=== PATIENT | female | born 1955 | race Caucasian/White ===

== ENCOUNTER 2017-03-17 22:35 | Emergency (ER) | payer OTHER ==
[2017-03-17 22:44] VITALS: BMI 26.3
[2017-03-18] MEDS ORDERED: diphenhydrAMINE HCL 25 MG CAPSULE (FP) PO ONE ×2 (01:22→01:26)
[2017-03-18] MEDS ORDERED: LOPERAMIDE HCL 2 MG CAPSULE PO ONE (01:22)
[2017-03-18] MEDS ORDERED: SODIUM CHLORIDE 0.9% 1000 ML INFUS.BAG IV ONE (01:23)
[2017-03-18] MEDS ORDERED: LOPERAMIDE HCL 2 MG CAPSULE ONE (01:26)
[2017-03-18 02:36] LABS: URINE APPEARANCE CLEAR; URINE BILIRUBIN NEGATIVE (NEGATIVE); URINE BLOOD NEGATIVE (NEGATIVE); URINE COLOR YELLOW; URINE GLUCOSE (UA) NEGATIVE (NEGATIVE); URINE KETONE NEGATIVE (NEGATIVE); URINE NITRITE NEGATIVE (NEGATIVE); URINE PROTEIN NEGATIVE (NEGATIVE); URINE UROBILINOGEN NEGATIVE mg/dL (0.2-1.0)
[2017-03-18 02:42] LABS: URINE LEUK ESTERASE 1+ (NEGATIVE)
--- NOTE | 2017-03-18 02:49 | PDOC ---
History of Present Illness - General Chief Complaint: Allergic Reaction Stated Complaint: ALLERGIC REACTION Time Seen by Provider: 03/18/17 00:25 - History of Present Illness Initial Comments: 03/18/17 02:46 CHIEF COMPLAINT: HISTORY OF PRESENT ILLNESS: 61 yo F with hx of HTN, NIDDM, arthritis, asthma presents to ED with rash x 1 day. Patient states that she ate bread and butter in the morning and then went for a walk and noticed a rash to her face that felt warm. Throughout the day it spread downward to her arms and legs, and she complains of itching and that she "felt cold." She also reports 7 episodes of diarrhea and states she had decreased urine output for the last two days. Patient recently traveled to [place] and she is concerned that she has Zika although she denies any URI symptoms or fever. PAST MEDICAL HISTORY: Denies past medical history FAMILY HISTORY: Denies SOCIAL HISTORY: Lives at home with ____. Occupation: . Denies tobacco, alcohol, illicit drug use. SURGICAL HISTORY: Denies ALLERGIES: No known drug allergies REVIEW OF SYSTEMS General/Constitutional: Denies fever or chills. Denies weakness, weight change. HEENT: Denies change in vision. Denies ear pain or discharge. Denies sore throat. Cardiovascular: Denies chest pain or shortness of breath. Respiratory: Denies cough, wheezing, or hemoptysis. Gastrointestinal: Denies nausea, vomiting, diarrhea or constipation. Denies rectal bleeding. Genitourinary: Denies dysuria, frequency, or change in urination. Musculoskeletal: Denies joint or muscle swelling or pain. Denies neck or back pain. Skin and breasts: Denies rash or easy bruising. Neurologic: Denies headache, vertigo, loss of consciousness, or loss of sensation. Psychiatric: Denies depression or anxiety. Endocrine: Denies increased thirst. Denies abnormal weight change. Hematologic/Lymphatic: Denies anemia, easy bleeding, or history of blood clots. Allergic/Immunologic: Denies hives or skin allergy. Denies latex allergy. PHYSICAL EXAM General Appearance: Well-appearing, appropriately dressed. No apparent distress , no intoxication. HEENT: EOMI, PERRLA, normal ENT inspection, normal voice, TMs normal, pharynx normal. No conjunctival pallor. No photophobia, scleral icterus. Neck: Supple. Trachea midline. No tenderness, rigidity, carotid bruit, stridor , lymphadenopathy, or thyromegaly. Respiratory/Chest: Lungs CTAB. No shortness of breath, chest tenderness, respiratory distress, accessory muscle use. No crackles, rales, rhonchi, stridor , wheezing, dullness Cardiovascular: RRR. S1, S2. No JVD, murmur, bradycardia, tachycardia. Vascular Pulses: Dorsalis-Pedis (R): 2+, Dorsalis-Pedis (L): 2+ Gastrointestinal/Abdominal: Normal bowel sounds. Abdomen soft, non-distended. No tenderness or rebound tenderness. No organomegaly, pulsatile mass, guarding , hernia, hepatomegaly, splenomegaly. Lymphatic: No adenopathy, tenderness. Musculoskeletal/Extremities: Normal inspection. FROM of all extremities, normal capillary refill. Pelvis Stable. No CVA tenderness. No tenderness to extremities, pedal edema, swelling, erythema or deformity. Integumentary: Generalized macular pruritic rash to entire body. Appropriate color, dry, warm. No cyanosis, erythema, jaundice Neurologic: commission broker II-XII intact. Fully oriented, alert. Appropriate mood/affect. Motor strength 5/5. No appreciable EOM palsy, facial droop or sensory deficit. Past History - Past Medical History Allergies/Adverse Reactions: Allergies Allergy/AdvReac Type Severity Reaction Status Date / Time No Known Drug Allergies Allergy Verified 11/16/13 17:09 Home Medications: Ambulatory Orders Atorvastatin Ca [Lipitor -] 40 mg PO DAILY 11/16/13 Ezetimibe [Zetia] 10 mg PO DAILY 11/16/13 Ibuprofen/Famotidine [Duexis 800-26.6 mg Tablet] 1 each PO TID 11/16/13 Levothyroxine [Synthroid -] 50 mcg PO DAILY 11/16/13 Metformin HCl [Glucophage -] 850 mg PO BID 11/16/13 Olmesartan/Hydrochlorothiazide [Benicar Hct 20-12.5 mg Tablet] 1 each PO DAILY 11/16/13 Saxagliptin HCl [Onglyza] 5 mg PO DAILY 11/16/13 Loratadine [Claritin -] 10 mg PO DAILY 04/24/14 Oxycodone HCl/Acetaminophen [Percocet 5-325 mg Tablet -] 1 - 2 tab PO Q4H #20 tablet 04/25/14 Diphenhydramine HCl [Benadryl -] 25 mg PO Q6H PRN #28 capsule 03/18/17 Anemia: No Asthma: No Cancer: No Cardiac Disorders: No CVA: No COPD: No CHF: No Dementia: No Diabetes: Yes GI Disorders: Yes (HIATAL HERNIA) Disorders: No HTN: Yes Hypercholesterolemia: Yes Liver Disease: No Seizures: No Thyroid Disease: Yes - Surgical History Abdominal Surgery: No Appendectomy: No Cardiac Surgery: No Cholecystectomy: No Lung Surgery: No Neurologic Surgery: No Orthopedic Surgery: No - Immunization History Immunization Up to Date: Yes - Psycho/Social/Smoking Cessation Hx Anxiety: No Suicidal Ideation: No Smoking History: Never smoked Have you smoked in the past 12 months: No Information on smoking cessation initiated: No Hx Alcohol Use: No Drug/Substance Use Hx: No Substance Use Type: None Hx Substance Use Treatment: No *Physical Exam - Vital Signs Last Vital Signs Temp Pulse Resp BP Pulse Ox 98.8 F 87 18 117/71 96 03/17/17 22:42 03/17/17 22:42 03/17/17 22:42 03/17/17 22:42 03/17/17 22:42 ED Treatment Course - ADDITIONAL ORDERS Additional order review: Laboratory Results 03/18/17 02:20 Urine Color Yellow Urine Appearance Clear Urine pH 6.0 Urine Protein Negative Urine Glucose (UA) Negative Urine Ketones Negative Urine Blood Negative Urine Nitrite Negative Urine Bilirubin Negative Urine Urobilinogen Negative Ur Leukocyte Esterase 1+ H - Medications Given in the ED: ED Medications Discontinued Medications Generic Name Dose Route Start Last Admin Trade Name Freq PRN Reason Stop Dose Admin Diphenhydramine HCl 25 mg 03/18/17 01:22 03/18/17 01:37 Benadryl - PO 03/18/17 01:23 25 mg ONCE ONE Administration Loperamide HCl 4 mg 03/18/17 01:22 03/18/17 01:37 Imodium - PO 03/18/17 01:23 Not Given ONCE ONE Sodium Chloride 1,000 ml 03/18/17 01:23 03/18/17 01:37 Normal Saline - IV 03/18/17 01:24 1,000 ml ONCE ONE Administration Medical Decision Making - Medical Decision Making 03/18/17 03:50 61 yo F with hx of HTN, NIDDM, arthritis, asthma presents to ED with rash x 1 day. -25 mg Benadryl -IVF -Loperamide Patient refused loperamide as she states she isn't having diarrhea anymore. However patient reports that she is still concerned about her decreased output and would like to check her urine. -UA, Ucx UA unremarkable. Patient now complains of "feeling like I will have an astma attack." Lungs CTAB. -Duoneb Patient reassessed; at this time she states she is feeling much better and is ready to go home. Advised patient to f/u with PCP and insurance policy clerk for allergy skin testing. Advised patient of signs and symptoms for return to ER; patient verbalized understanding and agrees to plan. *DC/Admit/Observation/Transfer Diagnosis at time of Disposition: Rash - Discharge Dispostion Admit: No - Prescriptions Prescriptions: Diphenhydramine HCl [Benadryl -] 25 mg PO Q6H PRN #28 capsule PRN Reason: For Itching - Referrals Referrals: Sarah Tripp MD [Primary Care Provider] - Lashanda Elkins MD [Staff Physician] - - Patient Instructions Printed Discharge Instructions: DI for Hives Additional Instructions: Please take medication as prescribed. As discussed, you must follow up with Dr. Tripp this week for further evaluation. You may also want to follow up with the insurance policy clerk for allergy testing. If you experience any shortness of breath, difficulty breathing, swelling of your tongue, mouth, lips, or throat, fever, nausea, vomiting, diarrhea, or any new or worsening symptoms, please return to the ER. Por favor, tome la medicacin segn lo prescrito. [place] se discuti, usted debe hacer un seguimiento con Dr. Tripp esta semana para kam evaluacin ms detallada. Tambien puede seguir con el dermatlogo para las pruebas de alergia. Si siente dificultad para respirar, dificultad para respirar, hinchazn de la lengua, boca, labios o garganta, fiebre, nuseas, vmitos, diarrea o cualquier s ntoma nuevo o que empeora, por favor regrese a la tank de emergencias. Print Language: DANISH
[2017-03-18] MEDS ORDERED: ALBUTEROL SO4 2.5/IPRATROPIUM 0.5 INH SOL 3 ML VIAL.NEB. NEB ONE ×2 (02:50→02:54)
[2017-03-18 02:57] LABS: URINE MUCUS RARE; URINE WBC 1 /hpf (3-5)
[2017-03-18 03:47] VITALS: BP 134/71; PULSE 73; TEMP 97.8
--- NOTE | 2017-03-18 03:47 | PDOC ---
*Physical Exam - Vital Signs Last Vital Signs Temp Pulse Resp BP Pulse Ox 98.8 F 87 18 117/71 96 03/17/17 22:42 03/17/17 22:42 03/17/17 22:42 03/17/17 22:42 03/17/17 22:42 ED Treatment Course - ADDITIONAL ORDERS Additional order review: Laboratory Results 03/18/17 02:20 Urine Color Yellow Urine Appearance Clear Urine pH 6.0 Urine Protein Negative Urine Glucose (UA) Negative Urine Ketones Negative Urine Blood Negative Urine Nitrite Negative Urine Bilirubin Negative Urine Urobilinogen Negative Ur Leukocyte Esterase 1+ H Urine RBC None Urine WBC 1 Ur Epithelial Cells Rare Urine Mucus Rare - Medications Given in the ED: ED Medications Discontinued Medications Generic Name Dose Route Start Last Admin Trade Name Freq PRN Reason Stop Dose Admin Albuterol/Ipratropium 1 amp 03/18/17 02:50 03/18/17 02:59 Duoneb - NEB 03/18/17 02:51 1 amp ONCE ONE Administration Diphenhydramine HCl 25 mg 03/18/17 01:22 03/18/17 01:37 Benadryl - PO 03/18/17 01:23 25 mg ONCE ONE Administration Loperamide HCl 4 mg 03/18/17 01:22 03/18/17 01:37 Imodium - PO 03/18/17 01:23 Not Given ONCE ONE Sodium Chloride 1,000 ml 03/18/17 01:23 03/18/17 01:37 Normal Saline - IV 03/18/17 01:24 1,000 ml ONCE ONE Administration Medical Decision Making - Medical Decision Making 03/18/17 03:47 agree with care from RON Rogers *DC/Admit/Observation/Transfer Diagnosis at time of Disposition: Rash - Prescriptions Prescriptions: Diphenhydramine HCl [Benadryl -] 25 mg PO Q6H PRN #28 capsule PRN Reason: For Itching - Referrals Referrals: Lashanda Elkins MD [Staff Physician] - Sarah Tripp MD [Primary Care Provider] - - Patient Instructions Printed Discharge Instructions: DI for Hives Additional Instructions: Please take medication as prescribed. As discussed, you must follow up with Dr. Tripp this week for further evaluation. You may also want to follow up with the payment specialist for allergy testing. If you experience any shortness of breath, difficulty breathing, swelling of your tongue, mouth, lips, or throat, fever, nausea, vomiting, diarrhea, or any new or worsening symptoms, please return to the ER. Por favor, tome la medicacin segn lo prescrito. [place] se discuti, usted debe hacer un seguimiento con Dr. Tripp esta semana para kam evaluacin ms detallada. Tambien puede seguir con el dermatlogo para las pruebas de alergia. Si siente dificultad para respirar, dificultad para respirar, hinchazn de la lengua, boca, labios o garganta, fiebre, nuseas, vmitos, diarrea o cualquier s ntoma nuevo o que empeora, por favor regrese a la tank de emergencias. Print Language: TURKMEN - Post Discharge Activity
== END 2017-03-18 03:48 | disposition home or self-care (01) ==
LOC: JER 22:35
PROC: 3E0F7GC Introduction of Other Therapeutic Substance into Respiratory Tract, Via Natural or Artificial Opening (ICD-10-PCS; principal; 2017-03-17)
DX: R21 Rash and other nonspecific skin eruption (principal); J45.909 Unspecified asthma, uncomplicated; E11.9 Type 2 diabetes mellitus without complications; E78.00 Pure hypercholesterolemia, unspecified; E03.9 Hypothyroidism, unspecified; Z79.84 Long term (current) use of oral hypoglycemic drugs
CPT/HCPCS: 81003; 81015; 87086; 99281-25

== ENCOUNTER 2017-08-11 16:16 | Emergency (ER) | payer OTHER ==
[2017-08-11] MEDS ORDERED: ALBUTEROL SO4 2.5/IPRATROPIUM 0.5 INH SOL 3 ML VIAL.NEB. NEB ONE (16:31)
--- NOTE | 2017-08-11 16:31 | PDOC ---
Rapid Medical Evaluation Time Seen by Provider: 08/11/17 16:25 Medical Evaluation: Allergies Allergy/AdvReac Type Severity Reaction Status Date / Time No Known Drug Allergies Allergy Verified 11/16/13 17:09 08/11/17 16:26 Pt with c/o: worsening cough, fatigue, dx'd yesterday with influenza and placed on steroids for wheezing ( asthmatic) and ceftin 500mg. pt on brief exam: rhonchi to rll, and wheezing lll Pt ordered for:Douneb and cxr to r/o pneumonia Pt to proceed to the ED: Discharge Disposition - Diagnosis Cough - Referrals - Patient Instructions - Post Discharge Activity
[2017-08-11 16:32] VITALS: BP 112/55; PULSE 89; TEMP 98.8; BMI 26.4
--- NOTE | 2017-08-11 17:12 | PDOC ---
History of Present Illness - General Chief Complaint: Cold Symptoms Stated Complaint: COUGHING Time Seen by Provider: 08/11/17 16:25 - History of Present Illness Initial Comments: 62 year old F with hx of HTN, NIDDM, arthritis, asthma recently diagnosed with flu (yesterday clinically with Dr. Tripp) presenting with worsening cough. Denies chest pain outside of cough/ with deep inhalation and states that it is non-exertional, and does not radiate, present with palpitations, or SOB. She was seen yesterday by Dr. Tripp's partner and diagnosed clinically with the flu, given oseltlamavir, prednisone, a nebulizer, and Ceftin. Denies nausea, vomiting, diarrhea, constipation, or other sick symptoms. 08/11/17 17:12 Past History - Past Medical History Allergies/Adverse Reactions: Allergies Allergy/AdvReac Type Severity Reaction Status Date / Time No Known Drug Allergies Allergy Verified 08/11/17 16:27 Home Medications: Ambulatory Orders Atorvastatin Ca [Lipitor -] 40 mg PO DAILY 11/16/13 Ezetimibe [Zetia] 10 mg PO DAILY 11/16/13 Ibuprofen/Famotidine [Duexis 800-26.6 mg Tablet] 1 each PO TID 11/16/13 Levothyroxine [Synthroid -] 50 mcg PO DAILY 11/16/13 Metformin HCl [Glucophage -] 850 mg PO BID 11/16/13 Olmesartan/Hydrochlorothiazide [Benicar Hct 20-12.5 mg Tablet] 1 each PO DAILY 11/16/13 Saxagliptin HCl [Onglyza] 5 mg PO DAILY 11/16/13 Loratadine [Claritin -] 10 mg PO DAILY 04/24/14 Oxycodone HCl/Acetaminophen [Percocet 5-325 mg Tablet -] 1 - 2 tab PO Q4H #20 tablet 04/25/14 Diphenhydramine HCl [Benadryl -] 25 mg PO Q6H PRN #28 capsule 03/18/17 Azithromycin 250 mg PO DAILY 4 Days #4 tablet 08/11/17 Guaifenesin/Dextromethorphan [Robitussin Cough-Chest Dm Liq] 237 ml PO BID PRN 10 Days #1 bottle 08/11/17 Anemia: No Asthma: No Cancer: No Cardiac Disorders: No CVA: No COPD: No CHF: No Dementia: No Diabetes: Yes GI Disorders: Yes (HIATAL HERNIA) Disorders: No HTN: Yes Hypercholesterolemia: Yes Liver Disease: No Seizures: No Thyroid Disease: Yes (HYPO) - Surgical History Abdominal Surgery: No Appendectomy: No Cardiac Surgery: No Cholecystectomy: No Lung Surgery: No Neurologic Surgery: No Orthopedic Surgery: No - Immunization History Immunization Up to Date: Yes - Suicide/Smoking/Psychosocial Hx Smoking History: Never smoked Have you smoked in the past 12 months: No Information on smoking cessation initiated: No Hx Alcohol Use: No Drug/Substance Use Hx: No Substance Use Type: None Hx Substance Use Treatment: No Review of Systems - Review of Systems Constitutional: Yes: Chills, Fever. No: Diaphoresis, Loss of Appetite HEENTM: No: Blurred Vision Respiratory: Yes: Cough. No: Shortness of Breath, Wheezing, Productive cough, Hemoptysis Cardiac (ROS): Yes: Chest Pain, Chest Tightness. No: Irregular Heart Rate, Palpitations ABD/GI: No: Diarrhea, Nausea, Poor Appetite, Vomiting : No: Dysuria, Discharge, Hematuria, Incontinence Integumentary: No: Bruising, Lesions, Lumps Neurological: No: Headache Psychiatric: No: Anxiety, Depression *Physical Exam - Vital Signs Last Vital Signs Temp Pulse Resp BP Pulse Ox 98.8 F 89 17 112/55 99 08/11/17 16:28 08/11/17 16:28 08/11/17 16:28 08/11/17 16:28 08/11/17 16:28 - Physical Exam General Appearance: Yes: Nourished, Appropriately Dressed. No: Apparent Distress HEENT: positive: EOMI, ALVERTO. negative: Normal ENT Inspection (nasal mucous discharge) Neck: positive: Trachea midline, Normal Thyroid, Supple. negative: Tender, Rigid Respiratory/Chest: positive: Lungs Clear, Normal Breath Sounds, Paradoxal Breathing. negative: Chest Tender, Respiratory Distress, Accessory Muscle Use Cardiovascular: positive: Regular Rhythm, Regular Rate Gastrointestinal/Abdominal: positive: Normal Bowel Sounds, Flat, Soft. negative : Tender Extremity: positive: Normal Capillary Refill, Normal Inspection, Normal Range of Motion. negative: Tender Integumentary: positive: Normal Color, Dry, Warm Neurologic: positive: Fully Oriented, Alert, Normal Mood/Affect, Normal Response , Motor Strength 5/5 ED Treatment Course - Medications Given in the ED: ED Medications Discontinued Medications Generic Name Dose Route Start Last Admin Trade Name Freq PRN Reason Stop Dose Admin Albuterol/Ipratropium 1 amp 08/11/17 16:31 08/11/17 16:33 Duoneb - NEB 08/11/17 16:32 1 amp ONCE ONE Administration Medical Decision Making - Medical Decision Making 62 year old female with history of asthma presenting with URI like symptoms currently on ceftin, prednisone, nebulizer, and oseltamavir. CXR showing possible LLL infiltrate but not an obvious focus/ consolidation. Patient overall well appearing and main complaint of cough has improved with robitussin. No wheezing s/p duoneb prior to exam. Spoke to Dr. Tripp's BRAKESHOE REPAIRER and she is OK with the discharge. Will add Robitussin and azithromycin to regimen and have her follow up tomorrow with Qasim. 08/11/17 18:27 *DC/Admit/Observation/Transfer Diagnosis at time of Disposition: Cough, Viral URI with cough - Discharge Dispostion Disposition: HOME Condition at time of disposition: Improved Admit: No - Prescriptions Prescriptions: Azithromycin 250 mg PO DAILY 4 Days #4 tablet Guaifenesin/Dextromethorphan [Robitussin Cough-Chest Dm Liq] 237 ml PO BID PRN 10 Days #1 bottle PRN Reason: Cough - Referrals Referrals: Sarah Tripp MD [Primary Care Provider] - - Patient Instructions Printed Discharge Instructions: DI for Viral Upper Respiratory Infection -- Adult Additional Instructions: Es probable que tengas kam infeccin respiratoria viral. Contine con todos los medicamentos que recibi de la oficina del Dr. Tripp y los nuevos medicamentos que le estamos dando hoy. Puede sammy Robitussin hasta 2 veces al d a para la tos. Por favor, siga con la Dra. Tripp maana en carcamo oficina. Regrese al departamento de emergencias si tiene sntomas nuevos o que empeoran a pesar del uso de carcamo medicamento. Print Language: NEPALI - Post Discharge Activity
[2017-08-11] MEDS ORDERED: guaiFENesin/CODEINE 10 ML UNIT-DOSE CUPS PO ONE (17:24)
--- NOTE | 2017-08-11 17:28 | PDOC ---
Attending Attestation - Resident Resident Name: Gt Anguianojacintograce - ED Attending Attestation I have performed the following: I have examined & evaluated the patient, The case was reviewed & discussed with the resident, I agree w/resident's findings & plan, Exceptions are as noted - HPI HPI: 08/11/17 17:25 62 YO female diag with influenza yestersay and placed on tamiflu,steroids, bronchodilators and was sent for cxr to r/u pneumonia - Physicial Exam PE: 08/11/17 18:30 wnwd 62 yo famale presents because of persistent cough,seen in PCP office and diag w influenza head ncat throat no exudates nares++rhinorrhea neck supple lungs cta b.l cvs [id number] abd nontender ext no deformity neuro axox3,ambulatory,no gross focal neuro deficits skin warm,dry - Medical Decision Making 08/11/17 18:33 cxr ?? infiltrate lll, plan -spoke to CLUTCH MECH[employer]IC at Dr Hendricks's office .will add zithromax plan follow up in office this week
[2017-08-11] MEDS ORDERED: guaiFENesin/CODEINE 5 ML UNIT-DOSE CUPS PO ONE (17:46)
[2017-08-11] MEDS ORDERED: AZITHROMYCIN 500 MG TABLET PO ONE (18:32)
[2017-08-11] MEDS ORDERED: AZITHROMYCIN 250 MG TABLET ONE ×2 (18:39→18:43)
== END 2017-08-11 18:51 | disposition home or self-care (01) ==
LOC: JER 16:16
PROC: 3E0F7GC Introduction of Other Therapeutic Substance into Respiratory Tract, Via Natural or Artificial Opening (ICD-10-PCS; principal; 2017-08-11)
DX: J06.9 Acute upper respiratory infection, unspecified (principal); B97.89 Other viral agents as the cause of diseases classified elsewhere; I10 Essential (primary) hypertension; E78.00 Pure hypercholesterolemia, unspecified; E11.9 Type 2 diabetes mellitus without complications; Z79.84 Long term (current) use of oral hypoglycemic drugs; E03.9 Hypothyroidism, unspecified
CPT/HCPCS: 71045-TC; 94640; 99281-25

== ENCOUNTER 2017-11-24 15:24 | Emergency (ER) | payer OTHER ==
[2017-11-24 15:35] VITALS: BP 129/68; PULSE 77; TEMP 98.9; BMI 28.9
--- NOTE | 2017-11-24 16:35 | PDOC ---
History of Present Illness - General Chief Complaint: Pain Stated Complaint: BACK, LT ARM PAIN Time Seen by Provider: 11/24/17 16:18 - History of Present Illness Initial Comments: 62-year-old female presents for evaluation of left hand numbness and tingling. Her symptoms and going on for 2 weeks. There are no precipitating factors or relieving factors. She denies prior problems with left hand 11/24/17 16:31 Past History - Past Medical History Allergies/Adverse Reactions: Allergies Allergy/AdvReac Type Severity Reaction Status Date / Time No Known Drug Allergies Allergy Verified 11/24/17 15:31 Home Medications: Ambulatory Orders Levothyroxine [Synthroid -] 50 mcg PO DAILY 11/16/13 Olmesartan/Hydrochlorothiazide [Benicar Hct 20-12.5 mg Tablet] 1 each PO DAILY 11/16/13 Saxagliptin HCl [Onglyza] 5 mg PO DAILY 11/16/13 metFORMIN HCL [Glucophage -] 850 mg PO BID 11/16/13 Loratadine [Claritin -] 10 mg PO DAILY 04/24/14 Cyclobenzaprine HCl [Flexeril -] 10 mg PO TID 11/24/17 Dexlansoprazole [Dexilant] 60 mg PO DAILY 11/24/17 Anemia: No Asthma: No Cancer: No Cardiac Disorders: No CVA: No COPD: No CHF: No Dementia: No Diabetes: Yes GI Disorders: Yes (HIATAL HERNIA) Disorders: No HTN: Yes Hypercholesterolemia: Yes Liver Disease: No Seizures: No Thyroid Disease: Yes (HYPO) - Surgical History Abdominal Surgery: No Appendectomy: No Cardiac Surgery: No Cholecystectomy: Yes Lung Surgery: No Neurologic Surgery: No Orthopedic Surgery: No - Immunization History Immunization Up to Date: Yes - Suicide/Smoking/Psychosocial Hx Smoking History: Never smoked Have you smoked in the past 12 months: No Hx Alcohol Use: No Drug/Substance Use Hx: No Substance Use Type: None Hx Substance Use Treatment: No Review of Systems - Review of Systems Comments:: GENERAL/CONSTITUTIONAL: [No fever or chills. No weakness. No weight change.] HEAD, EYES, EARS, NOSE AND THROAT: [No change in vision. No ear pain or discharge. No sore throat.] CARDIOVASCULAR: [No chest pain or shortness of breath.] RESPIRATORY: [No cough, wheezing, or hemoptysis.] GASTROINTESTINAL: [No nausea, vomiting, diarrhea or constipation. No rectal bleeding.] GENITOURINARY: [No dysuria, frequency, or change in urination.] MUSCULOSKELETAL: [No joint or muscle swelling or pain. No neck or back pain left hand pain.] SKIN AND BREASTS: [No rash or easy bruising.] NEUROLOGIC: [No headache, vertigo, loss of consciousness, or loss of sensation.] PSYCHIATRIC: [No depression or anxiety.] ENDOCRINE: [No increased thirst. No abnormal weight change.] HEMATOLOGIC/LYMPHATIC: [No anemia, easy bleeding, or history of blood clots.] ALLERGIC/IMMUNOLOGIC: [No hives or skin allergy. No latex allergy.] 11/24/17 16:31 *Physical Exam - Vital Signs Last Vital Signs Temp Pulse Resp BP Pulse Ox 98.9 F 77 18 129/68 99 11/24/17 15:31 11/24/17 15:31 11/24/17 15:31 11/24/17 15:31 11/24/17 15:31 - Physical Exam Comments: Cervical spine skin color and temperature are normal. There is full nonpainful range of motion. No palpable spasm. Biceps triceps and brachial radialis reflexes are 2+ and symmetric bilaterally. There is 5 out of 5 strength and thumb extension abduction and wrist flexion and extension elbow flexion and extension. 5 out of 5 strength in deltoid. Negative Jamila sign. Spurling maneuver is negative bilaterally. There are no gross sensory motor deficits. Neurovascularly intact. Left right elbow skin color and temperature are normal full range of motion which is nonpainful negative cubital tunnel sign no evidence of instability upper extremity compartments soft and nontender. Bilateral wrist exam full range of motion skin: Temperature are normal. Carpal tunnel signs are negative on the right she has a positive median nerve compression test on the left. 11/24/17 16:32 Medical Decision Making - Medical Decision Making This is most likely carpal tunnel syndrome I prescribed a night splint for her she can follow-up with orthopedic surgery in the next few days 11/24/17 16:33 *DC/Admit/Observation/Transfer Diagnosis at time of Disposition: Carpal tunnel syndrome of left wrist - Referrals Referrals: Sarah Tripp MD [Primary Care Provider] - Markie Ruiz MD [Staff Physician] - - Patient Instructions Printed Discharge Instructions: Carpal Tunnel Syndrome, DI for Carpal Tunnel Syndrome Additional Instructions: It is important for you to follow-up with hand surgery within the next week. I' ve given you a wrist splint which she can only sleep and do not wear during the day. Return to the emergency rooms if your symptoms worsen or go unresolved prior to follow-up with orthopedic surgery. - Post Discharge Activity
== END 2017-11-24 16:54 | disposition home or self-care (01) ==
LOC: JERFT 15:24
DX: G56.02 Carpal tunnel syndrome, left upper limb (principal); I10 Essential (primary) hypertension; E03.9 Hypothyroidism, unspecified; E78.00 Pure hypercholesterolemia, unspecified; E11.9 Type 2 diabetes mellitus without complications; Z79.84 Long term (current) use of oral hypoglycemic drugs
CPT/HCPCS: 99281-25

== ENCOUNTER 2022-07-17 06:25 | Day surgery (SDC) | payer OTHER ==
[2022-07-08 13:42] VITALS: BMI 31.4
[2022-07-17 07:11] VITALS: RESP 16
[2022-07-17] MEDS ORDERED: LIDOCAINE HCL 1%, 10 MG/ML (20ML VIAL) ONE (07:20)
[2022-07-17] MEDS ORDERED: BUPIVACAINE HCL 50 ML ONE (07:20)
[2022-07-17] MEDS ORDERED: MIDAZOLAM HCL 2 MG/2 ML SINGLE DOSE VIAL ONE (07:40)
[2022-07-17] MEDS ORDERED: ONDANSETRON 4 MG/2 ML VIAL ONE (08:41)
[2022-07-17] MEDS ORDERED: DEXAMETHASONE SOD PHOSPHATE 4 MG/1 ML VIAL ONE (08:41)
[2022-07-17] MEDS ORDERED: ceFAZolin SODIUM 1 GM VIAL ONE (08:43)
[2022-07-17] MEDS ORDERED: PROPOFOL 20 ML ONE (08:45)
[2022-07-17 10:38] VITALS: TEMP 98
[2022-07-17 10:48] VITALS: BP 113/70; PULSE 74
== END 2022-07-17 10:15 | disposition home or self-care (01) ==
LOC: FASU 06:25
PROVIDERS: ATTEND Orthopaedic Surgery
PROC: 0LB60ZZ Excision of Left Lower Arm and Wrist Tendon, Open Approach (ICD-10-PCS; 2022-07-17)
PROC: 01N50ZZ Release Median Nerve, Open Approach (ICD-10-PCS; principal; 2022-07-17 08:00)
DX: G56.02 Carpal tunnel syndrome, left upper limb (principal); M65.832 Other synovitis and tenosynovitis, left forearm
CPT/HCPCS: 82962; 88304-TC

== ENCOUNTER 2022-09-25 07:30 | Day surgery (SDC) | payer OTHER ==
[2022-09-22 09:54] VITALS: BMI 29.2
[2022-09-25] MEDS ORDERED: ONDANSETRON 4 MG/2 ML VIAL IVPUSH PRN (07:37)
[2022-09-25] MEDS ORDERED: ACETAMINOPHEN 325 MG TABLET (FP) PO PRN (07:37)
[2022-09-25] MEDS ORDERED: LACTATED RINGERS SOLUTION 1,000 ML IV SCH (07:45)
[2022-09-25] MEDS ORDERED: LIDOCAINE HCL 1%, 10 MG/ML (20ML VIAL) ONE (08:26)
[2022-09-25] MEDS ORDERED: BUPIVACAINE HCL 50 ML ONE (08:26)
[2022-09-25] MEDS ORDERED: MIDAZOLAM HCL 2 MG/2 ML SINGLE DOSE VIAL ONE (09:03)
[2022-09-25] MEDS ORDERED: PROPOFOL 20 ML ONE ×2 (09:05→09:31)
[2022-09-25] MEDS ORDERED: ceFAZolin SODIUM 1 GM VIAL ONE ×2 (09:10)
[2022-09-25] MEDS ORDERED: ONDANSETRON 4 MG/2 ML VIAL ONE (09:25)
[2022-09-25 10:14] VITALS: RESP 20; TEMP 97.1
[2022-09-25 11:01] VITALS: BP 115/60; PULSE 62
== END 2022-09-25 10:45 | disposition home or self-care (01) ==
LOC: FASU 07:30
PROVIDERS: ATTEND Orthopaedic Surgery
PROC: 0LB50ZZ Excision of Right Lower Arm and Wrist Tendon, Open Approach (ICD-10-PCS; 2022-09-25)
PROC: 01N50ZZ Release Median Nerve, Open Approach (ICD-10-PCS; principal; 2022-09-25 09:00)
DX: G56.01 Carpal tunnel syndrome, right upper limb (principal)
CPT/HCPCS: 82962; 88304-TC